=== PATIENT | female | born 1985 | race Hispanic/Latino ===

== ENCOUNTER 2017-01-16 11:19 | Emergency (ER) | payer SELFPAY ==
[2017-01-16 12:09] LABS: Basophils % (Auto) 0.9 % (0.0-1.8); Eosinophils % (Auto) 1.3 % (0.0-4.3); Hematocrit 40.4 % (30.3-42.9); Mean Corpuscular HGB Conc 32 % (30-34); Mean Corpuscular Hemoglobin 27 pg (28-32); Mean Corpuscular Volume 84 fl (79-97); Platelet Count 359 K/mm3 (140-440); Red Blood Count 4.79 M/mm3 (3.65-5.03); Red Cell Distribution Width 14.1 % (13.2-15.2); White Blood Count 9.1 K/mm3 (4.5-11.0)
[2017-01-16 12:15] LABS: Anion Gap 19 mmol/L; Blood Urea Nitrogen 4 mg/dL (7-17); Carbon Dioxide 23 mmol/L (22-30); Chloride 103.6 mmol/L (98-107); Glucose 84 mg/dL (65-100); Potassium 3.3 mmol/L (3.6-5.0); Sodium 142 mmol/L (137-145)
[2017-01-16] MEDS ORDERED: NACL 0.9% 1000 ML 1,000 ML IV ONE (17:01)
[2017-01-16] MEDS ORDERED: REGLAN IV ONE (17:02)
--- NOTE | 2017-01-16 17:11 | Emergency Department Report ---
HPI - General Chief Complaint: Nausea/Vomiting/Diarrhea Time Seen by Provider: 01/16/17 17:01 - HPI HPI: This is a 31-year-old female presents to the emergency department from home with complaint of 2 days of diarrhea and nausea with vomiting that has been going on since about 5 AM this morning. The nausea and vomiting is what brought her in to be seen today. She came in by EMS and received some IV fluid and allegedly 1 dose of Zofran despite the allergy to this. She still complains of the same symptoms and has been in the emergency department for about 6 hours at this point prior to myself taking over her care. She has a past medical history of asthma, hypertension and a history of IV drug use. She admits to tobacco use and occasional marijuana use. She currently appears to be homeless sleeping in a tent outside as she says that she and her significant other are trying to "save up enough money to get a house for us and her children." She does not have a primary care physician. No recent travel or sick contacts at home. ED Past Medical Hx - Past Medical History Previous Medical History?: Yes Hx Hypertension: Yes (no meds) Hx Psychiatric Treatment: Yes (i.v. drug use) Hx Asthma: Yes Additional medical history: Vaginal delivery x 3 - Surgical History Past Surgical History?: No - Social History Smoking Status: Current Every Day Smoker Substance Use Type: Marijuana ED Review of Systems ROS: Stated complaint: N/V Other details as noted in HPI Comment: All other systems reviewed and negative Constitutional: denies: chills, fever Eyes: denies: eye pain, eye discharge, vision change ENT: denies: ear pain, throat pain Respiratory: denies: cough, shortness of breath, wheezing Cardiovascular: denies: chest pain, palpitations Gastrointestinal: nausea, vomiting, diarrhea Genitourinary: denies: urgency, dysuria, discharge Musculoskeletal: denies: back pain, joint swelling, arthralgia Skin: denies: rash, lesions Neurological: denies: headache, weakness, paresthesias Physical Exam - Physical Exam Vital Signs: Vital Signs 01/16/17 11:27 Temperature 98.2 F Pulse Rate 69 Respiratory 18 Rate Blood Pressure 160/106 O2 Sat by Pulse 100 Oximetry Physical Exam: GENERAL: The patient is well-developed well-nourished. HEENT: Normocephalic. Atraumatic. Extraocular motions are intact. Pupils equal reactive to light bilaterally. Moist membranes. NECK: Supple. Trachea is midline. CHEST/LUNGS: Clear to auscultation. There is no respiratory distress noted. HEART/CARDIOVASCULAR: Regular. There is no tachycardia. There is no gallop rub or murmur. ABDOMEN: Abdomen is soft, nontender. Patient has normal bowel sounds. There is no abdominal distention. SKIN: Skin is warm and dry. NEURO: The patient is awake, alert, and oriented. The patient is cooperative. The patient has no focal neurologic deficits. The patient has normal speech. Normal gait. MUSCULOSKELETAL: There is no tenderness or deformity. There is no limitation range of motion. There is no evidence of acute injury. ED Course Vital Signs 01/16/17 11:27 Temperature 98.2 F Pulse Rate 69 Respiratory 18 Rate Blood Pressure 160/106 O2 Sat by Pulse 100 Oximetry ED Medical Decision Making - Lab Data Result diagrams: 01/16/17 11:36 01/16/17 11:36 - Medical Decision Making 31-year-old female presents to the emergency department with complaint of nausea and vomiting since this morning and 2 days of diarrhea. Since the patient has been in the emergency department there is been no further vomiting. She received a dose of Reglan and upon reevaluation she has any nausea. There is been no further diarrhea. Her CBC and BMP are mostly unremarkable except for some mild hypokalemia which was replaced with potassium chloride. The patient urinated just prior to us asking for a urine sample and does not yet need to go again. She got a liter of IV fluid but afterwards the IV started hurting her hand, and despite the fact that it does not appear to have infiltrated, it was taken out. She was able to display oral rehydration. She was seen ambulatory in the the emergency department and appeared stable. Patient appears unconcerned about possible or urinary tract infection. She understands that if she is and we are unable to get a urine sample and diagnosed at that she could be exposing herself to medications or conditions that are unsafe for a fetus. She says she is feeling much better and back to her baseline and asking for discharge home. She'll be given referrals for primary care physician's clinics. She will return to the ER for any worsening of her symptoms or any acute distress - Differential Diagnosis gastroenteritis, food poisoning, colitis, diverticulitis, Critical Care Time: No Critical care attestation.: If time is entered above; I have spent that time in minutes in the direct care of this critically ill patient, excluding procedure time. ED Disposition Clinical Impression: Dehydration Nausea and vomiting Qualifiers: Vomiting type: unspecified Vomiting Intractability: non-intractable Qualified Code(s): R11.2 - Nausea with vomiting, unspecified Disposition: - TO HOME OR SELFCARE Is pt being admited?: No Condition: Stable Instructions: Dehydration (ED), Acute Nausea and Vomiting (ED) Additional Instructions: Please follow-up with a primary care physician in the next few days if possible. Return to the emergency department with any worsening of your symptoms or any acute distress. Referrals: PRIMARY CARE,MD [Primary Care Provider] - 3-5 Days [facility] [place] [Outside] - 3-5 Days [facility] [Outside] - 3-5 Days [facility] [Outside] - 3-5 Days [facility] [Outside] - 3-5 Days Time of Disposition: 18:26
[2017-01-16 17:13] VITALS: BP 144/92
[2017-01-16] MEDS ORDERED: K-DUR PO ONE ×2 (17:27→18:00)
[2017-01-16] MEDS ORDERED: TYLENOL PO ONE (17:58)
== END 2017-01-16 19:34 | disposition home or self-care (01) ==
LOC: ED 11:19
DX: E86.0 Dehydration (principal); I10 Essential (primary) hypertension; J45.909 Unspecified asthma, uncomplicated; F17.200 Nicotine dependence, unspecified, uncomplicated; F12.10 Cannabis abuse, uncomplicated
CPT/HCPCS: 36415; 80048; 85025; 96361; 96374; 99284; J2765; J7030

== ENCOUNTER 2017-05-26 08:57 | Emergency (ER) | payer SELFPAY ==
[2017-05-26 09:23] VITALS: BP 125/81
--- NOTE | 2017-05-26 10:44 | XRay Report ---
ROUTINE CHEST, TWO VIEWS: HISTORY: Productive cough. The trachea, heart, mediastinal contour, lung ortez and bony thorax are unremarkable. IMPRESSION: Unremarkable chest x-ray.
[2017-05-26] MEDS ORDERED: XYLOCAINE 1% MPF 5 mL INFILTRATI ONE (11:15)
[2017-05-26] MEDS ORDERED: ZITHROMAX PO ONE (11:15)
[2017-05-26] MEDS ORDERED: ROCEPHIN IM ONE (11:15)
[2017-05-26] MEDS ORDERED: TESSALON PERLES PO ONE (11:15)
--- NOTE | 2017-05-26 11:25 | Emergency Department Report ---
- General Chief Complaint: Upper Respiratory Infection Stated Complaint: COUGHING Time Seen by Provider: 05/26/17 11:07 Source: patient, EMS Mode of arrival: Ambulatory Limitations: No Limitations - History of Present Illness Initial Comments: This is a 31-year-old female nontoxic, well nourished in appearance, no acute signs of distress presents to the ED with c/o of polyuria, productive cough, rhinorrhea, nasal congestion, vaginal discharge with odor times one week. Patient stated she is currently homeless. Patient denies any calf pain, calf tenderness, fever, chills, nausea, vomiting, chest pain, shortness of breathe, numbness, tingling, headache, stiff neck, blurry vision. Patient denies hemoptysis. Patient describes vaginal discharge as yellow in color with foul odor. Patient stated she is concerned about STD and wants to be treated. Patient states allergies to Flagyl, morphine, and zofran. PMH includes asthma and HTN. MD Complaint: cough, rhinorrhea, nasal congestion -: week(s) (1) Severity: mild Consistency: constant Improves With: nothing Worsens With: nothing Associated Symptoms: rhinorrhea, nasal congestion, cough. denies: fever, chills , myalgias, diaphoresis, headache, sore throat, stiff neck, chest pain, shortness of breath, abdominal pain, nausea, vomiting, diarrhea, dysuria, rash, confusion, right sweats, weight loss, epistaxis, hoarseness, ear pain Treatments Prior to Arrival: none - Related Data Previous Rx's Medication Instructions Recorded Last Taken Type Azithromycin [Zithromax Z-ALLISON] 250 mg PO DAILY #6 tablet 05/26/17 Unknown Rx Benzonatate [Tessalon Perle] 100 mg PO Q8H #20 capsule 05/26/17 Unknown Rx Allergies Allergy/AdvReac Type Severity Reaction Status Date / Time metronidazole [From Flagyl] Allergy Rash Verified 01/16/17 11:27 morphine Allergy Rash Verified 01/16/17 11:27 ondansetron HCl Allergy Rash Verified 01/16/17 11:27 [From Zofran (as hydrochloride)] ED Review of Systems ROS: Stated complaint: COUGHING Other details as noted in HPI Constitutional: denies: chills, fever Eyes: denies: eye pain, eye discharge, vision change ENT: denies: ear pain, throat pain Respiratory: cough. denies: shortness of breath, wheezing Cardiovascular: denies: chest pain, palpitations Endocrine: no symptoms reported Gastrointestinal: denies: abdominal pain, nausea, diarrhea Genitourinary: frequency, discharge. denies: urgency, dysuria Musculoskeletal: denies: back pain, joint swelling, arthralgia Skin: denies: rash, lesions Neurological: denies: headache, weakness, paresthesias Psychiatric: denies: anxiety, depression Hematological/Lymphatic: denies: easy bleeding, easy bruising ED Past Medical Hx - Past Medical History Previous Medical History?: Yes Hx Hypertension: Yes (no meds) Hx Psychiatric Treatment: Yes (i.v. drug use) Hx Asthma: Yes Additional medical history: Vaginal delivery x 3 - Surgical History Past Surgical History?: No - Social History Smoking Status: Current Every Day Smoker - Medications Home Medications: Home Medications Medication Instructions Recorded Confirmed Last Taken Type Azithromycin [Zithromax Z-ALLISON] 250 mg PO DAILY #6 tablet 05/26/17 Unknown Rx Benzonatate [Tessalon Perle] 100 mg PO Q8H #20 capsule 05/26/17 Unknown Rx ED Physical Exam - General Limitations: No Limitations General appearance: alert, in no apparent distress - Head Head exam: Present: atraumatic, normocephalic, normal inspection - Eye Eye exam: Present: normal appearance, PERRL, EOMI. Absent: scleral icterus, conjunctival injection, nystagmus, periorbital swelling, periorbital tenderness Pupils: Present: normal accommodation - ENT ENT exam: Present: normal exam, mucous membranes moist, TM's normal bilaterally , normal external ear exam, other - Expanded ENT Exam Expanded Ear exam: Present: normal external inspection Mouth exam: Present: normal external inspection, tongue normal. Absent: drooling, trismus, muffled voice, tongue elevation, laceration Throat exam: Positive: tonsillar erythema. Negative: tonsillomegaly, tonsillar exudate, R peritonsillar mass, L peritonsillar mass - Neck Neck exam: Present: normal inspection, full ROM. Absent: tenderness, meningismus, lymphadenopathy, thyromegaly - Respiratory Respiratory exam: Present: normal lung sounds bilaterally. Absent: respiratory distress, wheezes, rales, rhonchi, stridor, chest wall tenderness, accessory muscle use, decreased breath sounds, prolonged expiratory - Cardiovascular Cardiovascular Exam: Present: regular rate, normal rhythm, normal heart sounds. Absent: irregular rhythm, systolic murmur, diastolic murmur, rubs, gallop - GI/Abdominal GI/Abdominal exam: Present: soft, normal bowel sounds. Absent: distended, tenderness, guarding, rebound, rigid, diminished bowel sounds - Rectal Rectal exam: Present: deferred - Extremities Exam Extremities exam: Present: normal inspection, full ROM, normal capillary refill. Absent: tenderness, pedal edema, joint swelling, calf tenderness - Back Exam Back exam: Present: normal inspection, full ROM. Absent: tenderness, CVA tenderness (R), CVA tenderness (L), muscle spasm, paraspinal tenderness, vertebral tenderness, rash noted - Neurological Exam Neurological exam: Present: alert, oriented X3, CN II-XII intact, normal gait, reflexes normal - Psychiatric Psychiatric exam: Present: normal affect, normal mood - Skin Skin exam: Present: warm, dry, intact, normal color. Absent: rash ED Course Vital Signs 05/26/17 09:18 Temperature 97.7 F Pulse Rate 95 H Respiratory 20 Rate Blood Pressure 125/81 O2 Sat by Pulse 99 Oximetry - Reevaluation(s) Reevaluation #1: 05/26/17 11:27 Patient is speaking in full sentences with no signs of distress noted. ED Medical Decision Making - Medical Decision Making This is a 31-year-old female that presents with possible STD exposure, and upper respiratory infection. Patient is stable and was examined by me. UA obtained. She received Tessalon Perle in the ED which patient stated symptoms of cough is improving. Patient be treated with Z-Allison at discharge. Patient received Rocephin and azithromycin in the EP. Chest x-ray obtained and dictated by radiologist with normal examination. Patient refused a pelvic exam and states she is wants to be treated empirically and I instructed the patient that I must obtain a wet prep that rules out for bacterial vaginosis, Trichomonas, or yeast infection the patient stated she just wanted to be treated for a possible STD. 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 Patient stated she will return in about an hour for her other results. I will treated patient with z-allison before AMA. Patient was instructed Follow-up with a primary care doctor in 3-5 days or if symptoms worsen and continue return to emergency room as soon as possible. At time time of AMA, the patient does not seem toxic or ill in appearance. No acute signs of distress noted. Patient agrees to treatment plan of care. No further questions noted by the patient. Critical care attestation.: If time is entered above; I have spent that time in minutes in the direct care of this critically ill patient, excluding procedure time. ED Disposition Clinical Impression: Possible exposure to STD Upper respiratory infection Qualifiers: URI type: unspecified URI Qualified Code(s): J06.9 - Acute upper respiratory infection, unspecified Disposition: LEFT AGAINST MED ADVICE Is pt being admited?: No Does the pt Need Aspirin: No Condition: Stable Instructions: Benzonatate (By mouth), Azithromycin (By mouth), Safe Sex (ED), Upper Respiratory Infection (ED) Additional Instructions: Follow-up with a primary care doctor in 3-5 days or if symptoms worsen and continue return to emergency room as soon as possible. Prescriptions: Azithromycin [Zithromax Z-ALLISON] 250 mg PO DAILY #6 tablet Benzonatate [Tessalon Perle] 100 mg PO Q8H #20 capsule Referrals: PRIMARY CAREMD [Primary Care Provider] - 3-5 Days ERIC WALTERS MD [Staff Physician] - 3-5 Days [facility] [Outside] - 3-5 Days [facility] [Outside] - 3-5 Days Forms: AMA Form
[2017-05-26 11:48] LABS: Bacteria,Urine 1+ /HPF (Negative); Bilirubin,Urine NEG (Negative); Blood,Urine NEG (Negative); Ketones,Urine NEG (Negative); Leukocyte Esterase,Urine MOD (Negative); Mucus,Urine FEW /HPF; Nitrite,Urine NEG (Negative); Protein,Urine <15 mg/dL mg/dL (Negative)
== END 2017-05-26 11:39 | disposition left against medical advice (07) ==
LOC: ED 08:57
DX: J06.9 Acute upper respiratory infection, unspecified (principal); I10 Essential (primary) hypertension; J45.909 Unspecified asthma, uncomplicated; F17.200 Nicotine dependence, unspecified, uncomplicated; Z88.1 Allergy status to other antibiotic agents; Z88.6 Allergy status to analgesic agent
CPT/HCPCS: 71020; 81001; 96372; 99284; J0696

== ENCOUNTER 2017-06-16 12:46 | Emergency (ER) | payer OTHER ==
[2017-06-16 14:00] VITALS: BP 118/73
--- NOTE | 2017-06-16 19:15 | Emergency Department Report ---
ED ENT HPI - General Chief complaint: Earache Stated complaint: EAR PAIN/JAW PAIN Time Seen by Provider: 06/16/17 18:16 Source: patient Mode of arrival: Ambulatory Limitations: No Limitations - History of Present Illness Initial comments: This is a 31-year-old female nontoxic, well nourished in appearance, no acute signs of distress presents to the ED with c/o of left earache x4 days. Patient stated the earache makes her left jaw region throb. Patient denies any mastoid tenderness, ear canal discharge, hearing loss, hearing changes, nausea, vomiting , chest pain, shortness of breathe, fever, chills, stiff neck or headache. Allergies includes Flagyl, morphine, and Zofran. PMH includes asthma, and HTN. MD complaint: ear pain -: days(s) (4) Location: L ear Severity: mild Severity scale (0 -10): 8 Quality: aching Consistency: constant Improves with: none Worsens with: none Associated Symptoms: denies: fever, cough, gum swelling, toothache, pain with swallowing, sore throat, tinnitus, hearing loss, discharge from ear, rhinorrhea - Related Data Previous Rx's Medication Instructions Recorded Last Taken Type Azithromycin [Zithromax Z-ALLISON] 250 mg PO DAILY #6 tablet 05/26/17 Unknown Rx Benzonatate [Tessalon Perle] 100 mg PO Q8H #20 capsule 05/26/17 Unknown Rx Nitrofurantoin [place]/M-Cryst 100 mg PO Q12HR #14 capsule 05/28/17 Unknown Rx [Macrobid CAP] Amoxicillin [Amoxicillin TAB] 875 mg PO BID #20 tablet 06/16/17 Unknown Rx Ibuprofen [Motrin] 600 mg PO Q8H PRN #30 tablet 06/16/17 Unknown Rx Allergies Allergy/AdvReac Type Severity Reaction Status Date / Time metronidazole [From Flagyl] Allergy Rash Verified 01/16/17 11:27 morphine Allergy Rash Verified 01/16/17 11:27 ondansetron HCl Allergy Rash Verified 01/16/17 11:27 [From Zofran (as hydrochloride)] ED Dental HPI - General Chief complaint: Earache Stated complaint: EAR PAIN/JAW PAIN Time Seen by Provider: 06/16/17 18:16 Source: patient Mode of arrival: Ambulatory Limitations: No Limitations - Related Data Previous Rx's Medication Instructions Recorded Last Taken Type Azithromycin [Zithromax Z-ALLISON] 250 mg PO DAILY #6 tablet 05/26/17 Unknown Rx Benzonatate [Tessalon Perle] 100 mg PO Q8H #20 capsule 05/26/17 Unknown Rx Nitrofurantoin [place]/M-Cryst 100 mg PO Q12HR #14 capsule 05/28/17 Unknown Rx [Macrobid CAP] Amoxicillin [Amoxicillin TAB] 875 mg PO BID #20 tablet 06/16/17 Unknown Rx Ibuprofen [Motrin] 600 mg PO Q8H PRN #30 tablet 06/16/17 Unknown Rx Allergies Allergy/AdvReac Type Severity Reaction Status Date / Time metronidazole [From Flagyl] Allergy Rash Verified 01/16/17 11:27 morphine Allergy Rash Verified 01/16/17 11:27 ondansetron HCl Allergy Rash Verified 01/16/17 11:27 [From Zofran (as hydrochloride)] ED Review of Systems ROS: Stated complaint: EAR PAIN/JAW PAIN Other details as noted in HPI Constitutional: denies: chills, fever Eyes: denies: eye pain, eye discharge, vision change ENT: ear pain. denies: throat pain Respiratory: denies: cough, shortness of breath, wheezing Cardiovascular: denies: chest pain, palpitations Endocrine: no symptoms reported Gastrointestinal: denies: abdominal pain, nausea, diarrhea Genitourinary: denies: urgency, dysuria, discharge Musculoskeletal: denies: back pain, joint swelling, arthralgia Skin: denies: rash, lesions Neurological: denies: headache, weakness, paresthesias Psychiatric: denies: anxiety, depression Hematological/Lymphatic: denies: easy bleeding, easy bruising ED Past Medical Hx - Past Medical History Previous Medical History?: Yes Hx Hypertension: Yes (no meds) Hx Psychiatric Treatment: Yes (i.v. drug use) Hx Asthma: Yes Additional medical history: Vaginal delivery x 3 - Surgical History Past Surgical History?: No - Social History Smoking Status: Current Every Day Smoker Substance Use Type: None - Medications Home Medications: Home Medications Medication Instructions Recorded Confirmed Last Taken Type Azithromycin [Zithromax Z-ALLISON] 250 mg PO DAILY #6 tablet 05/26/17 Unknown Rx Benzonatate [Tessalon Perle] 100 mg PO Q8H #20 capsule 05/26/17 Unknown Rx Nitrofurantoin [place]/M-Cryst 100 mg PO Q12HR #14 capsule 05/28/17 Unknown Rx [Macrobid CAP] Amoxicillin [Amoxicillin TAB] 875 mg PO BID #20 tablet 06/16/17 Unknown Rx Ibuprofen [Motrin] 600 mg PO Q8H PRN #30 tablet 06/16/17 Unknown Rx ED Physical Exam - General Limitations: No Limitations General appearance: alert, in no apparent distress - Head Head exam: Present: atraumatic, normocephalic, normal inspection - Eye Eye exam: Present: normal appearance, PERRL, EOMI. Absent: scleral icterus, conjunctival injection, nystagmus, periorbital swelling, periorbital tenderness Pupils: Present: normal accommodation - ENT ENT exam: Present: normal exam, normal orophraynx, mucous membranes moist, normal external ear exam - Expanded ENT Exam Expanded Ear exam: Present: normal external inspection TM/Canal exam: Erythema: Left TM, Bulging: Left TM Mouth exam: Present: normal external inspection, tongue normal. Absent: drooling, trismus, muffled voice, tongue elevation, laceration Teeth exam: Present: normal inspection Throat exam: Positive: normal inspection, other (No acbsess or facial swelling. ). Negative: tonsillar erythema, tonsillomegaly, tonsillar exudate, R peritonsillar mass, L peritonsillar mass - Neck Neck exam: Present: normal inspection, full ROM. Absent: tenderness, meningismus, lymphadenopathy, thyromegaly - Respiratory Respiratory exam: Present: normal lung sounds bilaterally. Absent: respiratory distress, wheezes, rales, rhonchi, stridor, chest wall tenderness, accessory muscle use, decreased breath sounds, prolonged expiratory - Cardiovascular Cardiovascular Exam: Present: regular rate, normal rhythm. Absent: systolic murmur, diastolic murmur, rubs, gallop - GI/Abdominal GI/Abdominal exam: Present: soft, normal bowel sounds - Extremities Exam Extremities exam: Present: normal inspection, full ROM, normal capillary refill. Absent: tenderness, pedal edema, joint swelling, calf tenderness - Back Exam Back exam: Present: normal inspection, full ROM. Absent: tenderness, CVA tenderness (R), CVA tenderness (L), muscle spasm, paraspinal tenderness, vertebral tenderness, rash noted - Neurological Exam Neurological exam: Present: alert, oriented X3, CN II-XII intact, normal gait, reflexes normal - Psychiatric Psychiatric exam: Present: normal affect, normal mood - Skin Skin exam: Present: warm, dry, intact, normal color. Absent: rash ED Course Vital Signs 06/16/17 13:58 Temperature 98.7 F Pulse Rate 96 H Respiratory 16 Rate Blood Pressure 118/73 O2 Sat by Pulse 98 Oximetry - Reevaluation(s) Reevaluation #1: 06/16/17 19:32 Patient is speaking in full sentences with no signs of distress noted. ED Medical Decision Making - Medical Decision Making This is a 31-year-old female that presents with left otitis media. Patient is stable and was examined by me. Patient received Motrin in the ED. Patient is d/ c woth amox. Patient was instructed Follow-up with a primary care doctor in 3-5 days or if symptoms worsen and continue return to emergency room as soon as possible. At time time of discharge, the patient does not seem toxic or ill in appearance. No acute signs of distress noted. Patient agrees to discharge treatment plan of care. No further questions noted by the patient. Critical care attestation.: If time is entered above; I have spent that time in minutes in the direct care of this critically ill patient, excluding procedure time. ED Disposition Clinical Impression: Otitis media Qualifiers: Otitis media type: unspecified Laterality: left Qualified Code(s): H66.92 - Otitis media, unspecified, left ear Disposition: DC-01 TO HOME OR SELFCARE Is pt being admited?: No Does the pt Need Aspirin: No Condition: Stable Instructions: Otitis Media (ED), Ibuprofen (By mouth), Amoxicillin (By mouth) Additional Instructions: Follow-up with a primary care doctor in 3-5 days or if symptoms worsen and continue return to emergency room as soon as possible. Prescriptions: Amoxicillin [Amoxicillin TAB] 875 mg PO BID #20 tablet Ibuprofen [Motrin] 600 mg PO Q8H PRN #30 tablet PRN Reason: Pain Referrals: ERIC WALTERS MD [Staff Physician] - 3-5 Days CARROLL THOMAS MD [Staff Physician] - 3-5 Days [facility] [Outside] - 3-5 Days [facility] [place] [Outside] - 3-5 Days Forms: Work/School Release Form(ED)
[2017-06-16] MEDS ORDERED: MOTRIN PO ONE (19:34)
[2017-06-16] MEDS ORDERED: ULTRAM ONE (20:24)
[2017-06-16] MEDS ORDERED: ULTRAM PO ONE (20:25)
== END 2017-06-16 20:15 | disposition home or self-care (01) ==
LOC: ED 12:46
DX: H66.92 Otitis media, unspecified, left ear (principal); I10 Essential (primary) hypertension; J45.909 Unspecified asthma, uncomplicated; F17.200 Nicotine dependence, unspecified, uncomplicated; Z88.8 Allergy status to other drugs, medicaments and biological substances; Z88.5 Allergy status to narcotic agent
CPT/HCPCS: 99282

== ENCOUNTER 2017-08-11 13:36 | Emergency (ER) | payer SELFPAY ==
--- NOTE | 2017-08-11 21:52 | Emergency Department Report ---
Upper Extremity - HPI Chief Complaint: Extremity Injury, Upper Stated Complaint: DIZZINESS Time Seen by Provider: 08/11/17 21:33 Upper Extremity: Left Hand (numbness to both hands. Denies pain), Right Hand Occurred When: >5 Days (ongoing for months) Mechanism: Unsure (no pain at present) Symptoms: Yes Numbness (both hands), No Pain with Movement (0/10 pain), No Deformity, No Limited Range of Movement, No Weakness, No Swelling, No Bruising/ Ecchymosis, No Laceration or Abrasion Other History: Patient here reported that she's been having ongoing numbness to both hands without any pain. She said it was aggravated by her doing some work building halfway this weekend. Patient is a smoker. She also says she is homeless and she sleeps outside and is enough to call causes it. Patient is recovering IV drug user and was asked and if that could've caused it. She denies any pain in hands. Denies any change in temperature. Immunizations up- to-date per patient. She does not have a primary care doctor ED Review of Systems ROS: Stated complaint: DIZZINESS Other details as noted in HPI Comment: All other systems reviewed and negative Constitutional: no symptoms reported Respiratory: no symptoms reported Cardiovascular: denies: chest pain, palpitations, dyspnea on exertion, edema, syncope, other Gastrointestinal: denies: abdominal pain, nausea, vomiting Genitourinary: denies: urgency, dysuria, frequency, hematuria, discharge Musculoskeletal: other (numbness to both hands that is chronic). denies: back pain, arthralgia, myalgia Skin: denies: rash Neurological: numbness (both hands). denies: headache, weakness, paresthesias, confusion ED Past Medical Hx - Past Medical History Previous Medical History?: Yes Hx Hypertension: Yes (no meds) Hx Psychiatric Treatment: Yes (i.v. drug use) Hx Asthma: Yes Additional medical history: Vaginal delivery x 3 - Surgical History Past Surgical History?: No - Family History Family history: no significant - Social History Smoking Status: Current Every Day Smoker Substance Use Type: None - Medications Home Medications: Home Medications Medication Instructions Recorded Confirmed Last Taken Type Azithromycin [Zithromax Z-ALLISON] 250 mg PO DAILY #6 tablet 05/26/17 Unknown Rx Benzonatate [Tessalon Perle] 100 mg PO Q8H #20 capsule 05/26/17 Unknown Rx Nitrofurantoin [place]/M-Cryst 100 mg PO Q12HR #14 capsule 05/28/17 Unknown Rx [Macrobid CAP] Amoxicillin [Amoxicillin TAB] 875 mg PO BID #20 tablet 06/16/17 Unknown Rx Ibuprofen [Motrin] 600 mg PO Q8H PRN #30 tablet 06/16/17 Unknown Rx Upper Extremity Exam - Exam General: Vital signs noted. No distress. Alert and acting appropriately. This is a 32-year-old female well-nourished well-developed in no acute distress. Head and Torso: No HEENT Abnormality (normal examination), No Neck Tenderness ( normal examination), No Chest/Lungs Abnormality (clear to auscultate bilaterally , no rhonchi wheezes or rales.), No Abdominal Tenderness (nontender to palpate in all quadrants. Normal bowel sounds), No Back Tenderness (no vertebral or paraspinal tenderness) Shoulder Exam: Yes Normal Range of Motion in Shoulder (normal range of motion), No Shoulder Tenderness, No Clavicle Tenderness, No Shoulder Deformity, No AC Joint Tenderness Arm Exam: No Arm/Humerus Tenderness, No Arm Deformity Elbow: Yes Normal Range of Motion in Elbow (full range of motion really), No Elbow Tenderness, No Elbow Deformity Forearm: No Forearm Tenderness, No Forearm Deformity, No Pain with Pronation, No Pain with Supination Wrist: Yes Normal ROM in Wrist, No Wrist Tenderness, No Wrist Deformity, No Snuffbox Tenderness, No Pain with Axial Thumb Compression Hand: Yes Normal ROM in Digit(s), No Hand Tenderness (no swelling noted), No Hand Deformity, No Digit Tenderness (no restriction in movement to hands and fingers), No Digit(s) Deformity, No Tendon Dysfunction CMS Exam: Yes Normal Distal Pulses, Yes Normal Capillary Refill, Yes Normal Distal Sensation, No Broken Skin ED Course Vital Signs 08/11/17 14:29 Temperature 98.3 F Pulse Rate 100 H Respiratory 16 Rate Blood Pressure 135/71 O2 Sat by Pulse 97 Oximetry Vital Signs 08/11/17 08/11/17 14:29 21:59 Temperature 98.3 F 98.3 F Pulse Rate 100 H 88 Respiratory 16 16 Rate Blood Pressure 135/71 Blood Pressure 126/71 [Right] O2 Sat by Pulse 97 96 Oximetry - Reevaluation(s) Reevaluation #1: 08/11/17 22:38 Normal exam ED Medical Decision Making - Medical Decision Making ED course:Patient here reports bilateral hand numbness that has been ongoing for a few months now. Patient did not have any direct injury but reports that she is recovering IV drug user and also homeless and stays outside a lot and she said she was working on some halfway a few days ago and thinks that this caused the numbness. Patient is a smoker. Physical findings were normal exam of both hands with 2+ and full bounding pulses and +5 strength all extremities. Bilateral handgrip strong and equal. No neurovascular compromise with normal capillary refills. No difference in temperature to both hands which are warm. I discussed the patient that this is a chronic nerve problems and she will need to follow-up with primary care which is at [facility] and they can refer her if needed. I also discussed with her that she needs to stop smoking because this can cause her to have numbness in her hands. She voiced understanding and discharged home in stable condition Critical care attestation.: If time is entered above; I have spent that time in minutes in the direct care of this critically ill patient, excluding procedure time. ED Disposition Clinical Impression: Numbness in both hands, Nicotine abuse Disposition: DC-01 TO HOME OR SELFCARE Is pt being admited?: No Does the pt Need Aspirin: No Condition: Stable Instructions: How to Stop Smoking (ED), Paresthesia (ED) Additional Instructions: Please increase her fluid intake He stopped smoking Increased her fluid intake Referrals: [facility] [Outside] - 2-3 Days Forms: Work/School Release Form(ED)
[2017-08-11 22:00] VITALS: BP 126/71
== END 2017-08-11 22:55 | disposition home or self-care (01) ==
LOC: ED 13:36
DX: R20.0 Anesthesia of skin (principal); F17.200 Nicotine dependence, unspecified, uncomplicated; I10 Essential (primary) hypertension
CPT/HCPCS: 99283

== ENCOUNTER 2017-08-14 12:52 | Emergency (ER) | payer SELFPAY ==
[2017-08-14] MEDS ORDERED: TYLENOL PO ONE (14:21)
[2017-08-14] MEDS ORDERED: TYLENOL ONE (14:22)
--- NOTE | 2017-08-14 17:54 | Emergency Department Report ---
Blank Doc - Documentation Documentation: Patient is a 32-year-old female with flulike symptoms. Patient's initial past 2 days she's had cough, congestion she has pain in the right lower lung ortez with coughing as well as body aches decreased appetite. Patient is febrile 102. Slightly tachycardic. Lungs were clear to auscultation. Patient will have a chest x-ray rule out atypical pneumonia.
[2017-08-14] MEDS ORDERED: TORADOL IM ONE (17:55)
--- NOTE | 2017-08-14 19:08 | XRay Report ---
FINAL REPORT PROCEDURE: XR CHEST ROUTINE 2V TECHNIQUE: PA and lateral chest radiographs were obtained. CPT 20483 HISTORY: cough COMPARISON: No prior studies are available for comparison. FINDINGS: Heart: Normal. Mediastinum/Vessels: Normal. Lungs/Pleural space: No infiltrate, effusion, or pneumothorax is seen. Bony thorax: No acute osseous abnormality. Other: IMPRESSION: No pulmonary infiltrates are identified.
[2017-08-14] MEDS ORDERED: TESSALON PERLES PO ONE (20:06)
[2017-08-14 20:28] VITALS: BP 118/67
--- NOTE | 2017-08-14 20:53 | Emergency Department Report ---
- General Chief Complaint: Fever Stated Complaint: FEVER Time Seen by Provider: 08/14/17 17:51 Source: patient Mode of arrival: Ambulatory Limitations: No Limitations - History of Present Illness Initial Comments: This is a 32-year-old female nontoxic, well nourished in appearance, no acute signs of distress presents to the ED with c/o of productive cough, fever, chills , body aches, rhinorrhea, nasal congestion x2 days. Patient describes productive cough as yellow mucus production. Patient denies any recent travels , long car, recent hospital stays. Patient denies any calf pain or calf tenderness. Patient denies any chest pain, short of breath, fever, chills, nausea, vomiting, hemoptysis, numbness, tingling, headache or stiff neck. Patient states allergies to Flagyl, morphine, and Zofran. PMH includes HTN and asthma. MD Complaint: fever, cough, rhinorrhea, nasal congestion -: days(s) (2) Severity: mild Severity scale (0 -10): 8 Quality: aching Consistency: constant Improves With: nothing Worsens With: nothing Associated Symptoms: fever, chills, rhinorrhea, nasal congestion, cough. denies : myalgias, diaphoresis, headache, sore throat, stiff neck, chest pain, shortness of breath, abdominal pain, nausea, vomiting, diarrhea, dysuria, rash, confusion, right sweats, weight loss, epistaxis, hoarseness, ear pain Treatments Prior to Arrival: none - Related Data Previous Rx's Medication Instructions Recorded Last Taken Type Azithromycin [Zithromax Z-ALLISON] 250 mg PO DAILY #6 tablet 05/26/17 Unknown Rx Benzonatate [Tessalon Perle] 100 mg PO Q8H #20 capsule 05/26/17 Unknown Rx Nitrofurantoin [place]/M-Cryst 100 mg PO Q12HR #14 capsule 05/28/17 Unknown Rx [Macrobid CAP] Amoxicillin [Amoxicillin TAB] 875 mg PO BID #20 tablet 06/16/17 Unknown Rx Ibuprofen [Motrin] 600 mg PO Q8H PRN #30 tablet 06/16/17 Unknown Rx Azithromycin [Zithromax Z-ALLISON] 250 mg PO DAILY #6 tablet 08/14/17 Unknown Rx Benzonatate [Tessalon Perle] 100 mg PO Q6H PRN #20 capsule 08/14/17 Unknown Rx Ibuprofen [Motrin] 600 mg PO Q8H PRN #30 tablet 08/14/17 Unknown Rx Oseltamivir [Tamiflu] 75 mg PO BID #14 cap 08/14/17 Unknown Rx Allergies Allergy/AdvReac Type Severity Reaction Status Date / Time metronidazole [From Flagyl] Allergy Rash Verified 01/16/17 11:27 morphine Allergy Rash Verified 01/16/17 11:27 ondansetron HCl Allergy Rash Verified 01/16/17 11:27 [From Zofran (as hydrochloride)] ED Review of Systems ROS: Stated complaint: FEVER Other details as noted in HPI Constitutional: chills, fever Eyes: denies: eye pain, eye discharge, vision change ENT: denies: ear pain, throat pain Respiratory: cough. denies: shortness of breath, wheezing Cardiovascular: denies: chest pain, palpitations Endocrine: no symptoms reported Gastrointestinal: denies: abdominal pain, nausea, diarrhea Genitourinary: denies: urgency, dysuria, discharge Musculoskeletal: denies: back pain, joint swelling, arthralgia Skin: denies: rash, lesions Neurological: denies: headache, weakness, paresthesias Psychiatric: denies: anxiety, depression Hematological/Lymphatic: denies: easy bleeding, easy bruising ED Past Medical Hx - Past Medical History Previous Medical History?: Yes Hx Hypertension: Yes (no meds) Hx Psychiatric Treatment: Yes (i.v. drug use) Hx Asthma: Yes Additional medical history: Vaginal delivery x 3 - Surgical History Past Surgical History?: No - Social History Smoking Status: Current Every Day Smoker Substance Use Type: Non Opiate Pain - Medications Home Medications: Home Medications Medication Instructions Recorded Confirmed Last Taken Type Azithromycin [Zithromax Z-ALLISON] 250 mg PO DAILY #6 tablet 05/26/17 Unknown Rx Benzonatate [Tessalon Perle] 100 mg PO Q8H #20 capsule 05/26/17 Unknown Rx Nitrofurantoin [place]/M-Cryst 100 mg PO Q12HR #14 capsule 05/28/17 Unknown Rx [Macrobid CAP] Amoxicillin [Amoxicillin TAB] 875 mg PO BID #20 tablet 06/16/17 Unknown Rx Ibuprofen [Motrin] 600 mg PO Q8H PRN #30 tablet 06/16/17 Unknown Rx Azithromycin [Zithromax Z-ALLISON] 250 mg PO DAILY #6 tablet 08/14/17 Unknown Rx Benzonatate [Tessalon Perle] 100 mg PO Q6H PRN #20 capsule 08/14/17 Unknown Rx Ibuprofen [Motrin] 600 mg PO Q8H PRN #30 tablet 08/14/17 Unknown Rx Oseltamivir [Tamiflu] 75 mg PO BID #14 cap 08/14/17 Unknown Rx ED Physical Exam - General Limitations: No Limitations General appearance: alert, in no apparent distress - Head Head exam: Present: atraumatic, normocephalic - Eye Eye exam: Present: normal appearance, PERRL, EOMI Pupils: Present: normal accommodation - ENT ENT exam: Present: normal exam, normal orophraynx, mucous membranes moist, TM's normal bilaterally, normal external ear exam - Neck Neck exam: Present: normal inspection, full ROM. Absent: tenderness, meningismus, lymphadenopathy, thyromegaly - Respiratory Respiratory exam: Present: normal lung sounds bilaterally. Absent: respiratory distress, wheezes, rales, rhonchi, stridor, chest wall tenderness, accessory muscle use, decreased breath sounds, prolonged expiratory - Cardiovascular Cardiovascular Exam: Present: regular rate, normal rhythm, normal heart sounds. Absent: irregular rhythm, systolic murmur, diastolic murmur, rubs, gallop - GI/Abdominal GI/Abdominal exam: Present: soft, normal bowel sounds. Absent: distended, tenderness, guarding, rebound, rigid, diminished bowel sounds - Rectal Rectal exam: Present: deferred - Extremities Exam Extremities exam: Present: normal inspection, full ROM. Absent: tenderness, pedal edema, joint swelling, calf tenderness - Back Exam Back exam: Present: normal inspection, full ROM. Absent: tenderness, CVA tenderness (R), CVA tenderness (L), muscle spasm, paraspinal tenderness, vertebral tenderness, rash noted - Neurological Exam Neurological exam: Present: alert, oriented X3, CN II-XII intact, normal gait, reflexes normal - Psychiatric Psychiatric exam: Present: normal affect, normal mood - Skin Skin exam: Present: warm, dry, intact, normal color. Absent: rash ED Course Vital Signs 08/14/17 08/14/17 08/14/17 14:17 20:27 20:37 Temperature 102.2 F H 99.8 F H Pulse Rate 109 H 95 H Respiratory 22 18 Rate Blood Pressure 125/86 Blood Pressure 118/67 [Right] O2 Sat by Pulse 98 98 Oximetry - Reevaluation(s) Reevaluation #1: 08/14/17 20:54 Patient is speaking in full sentences with no signs of distress noted. - Consultations Consultation #1: 08/14/17 20:55 Patient has been consulted with Dr. Stephenson about patient history, physical exam , and labs and examined and screened patient and agrees to ED plan of care and discharge plan of care. ED Medical Decision Making - Medical Decision Making This is a 32-year-old female that presents with upper respiratory infection and influenza. Patient is stable and was examined by me and Dr. Stephenson. Chest x- ray has been obtained and dictated by radiologist with normal exam. Patient is notified of x-ray results with no questions noted. Due to patient having symptoms of influenza and upper respiratory infection I will treat patient empirically with Tamiflu and zpak. Patient was instructed to increase hydration , rest and take Motrin for fever episodes. Patient received Toradol, Tylenol, and tesslone perrls in the ED. Vitals stable. Patient is nonfebrile and normal heart rate. Patient was orally hydrated and patient tolerated well known nausea or vomiting. Patient was instructed Follow-up with a primary care doctor in 3- 5 days or if symptoms worsen and continue return to emergency room as soon as possible. At time time of discharge, the patient does not seem toxic or ill in appearance. No acute signs of distress noted. Patient agrees to discharge treatment plan of care. No further questions noted by the patient. Critical care attestation.: If time is entered above; I have spent that time in minutes in the direct care of this critically ill patient, excluding procedure time. ED Disposition Clinical Impression: Influenza Upper respiratory infection Qualifiers: URI type: unspecified URI Qualified Code(s): J06.9 - Acute upper respiratory infection, unspecified Disposition: DC-01 TO HOME OR SELFCARE Is pt being admited?: No Does the pt Need Aspirin: No Condition: Stable Instructions: Fever in Adults (ED), Ibuprofen (By mouth), Electrolyte Supplement (By mouth), Influenza (ED), Azithromycin (By mouth), Oseltamivir (By mouth) Additional Instructions: Follow-up with a primary care doctor in 3-5 days or if symptoms worsen and continue return to emergency room as soon as possible. Increase rest, hydration and take Motrin for fever episodes. Prescriptions: Azithromycin [Zithromax Z-ALLISON] 250 mg PO DAILY #6 tablet Benzonatate [Tessalon Perle] 100 mg PO Q6H PRN #20 capsule PRN Reason: Cough Ibuprofen [Motrin] 600 mg PO Q8H PRN #30 tablet PRN Reason: Fever Oseltamivir [Tamiflu] 75 mg PO BID #14 cap Referrals: PRIMARY CARE, [Primary Care Provider] - 3-5 Days ERIC WALTERS MD [Staff Physician] - 3-5 Days [facility] [Outside] - 3-5 Days [facility] [Outside] - 3-5 Days Forms: Work/School Release Form(ED)
== END 2017-08-14 21:05 | disposition home or self-care (01) ==
LOC: ED 12:52
DX: J11.1 Influenza due to unidentified influenza virus with other respiratory manifestations (principal); I10 Essential (primary) hypertension; J45.909 Unspecified asthma, uncomplicated; F17.200 Nicotine dependence, unspecified, uncomplicated; Z88.5 Allergy status to narcotic agent; Z88.8 Allergy status to other drugs, medicaments and biological substances
CPT/HCPCS: 71046; 99283; J1885

== ENCOUNTER 2017-09-10 11:56 | Emergency (ER) | payer SELFPAY ==
[2017-09-10 12:01] VITALS: BP 124/56
[2017-09-10 12:36] LABS: HCG Qualitative,Urine Negative (Negative)
[2017-09-10] MEDS ORDERED: MOTRIN PO ONE (12:36)
[2017-09-10 12:44] LABS: Bilirubin,Urine NEG (Negative); Blood,Urine NEG (Negative); Color,Urine Yellow (Yellow); Mucus,Urine FEW /HPF; Protein,Urine <15 mg/dL mg/dL (Negative); Urobilinogen,Urine < 2.0 mg/dL (<2.0)
--- NOTE | 2017-09-10 13:05 | Emergency Department Report ---
Blank Doc - Documentation Documentation: Patient is a 32-year-old female who is complaining of urinary frequency and dysuria vaginal discharge. Patient states that she has a strong odor in her vaginal region. Patient states she has some crampy lower abdominal pains 3 out of 10 in severity. Patient states she has had multiple episodes of discharge since she's been with her current partner. Patient denies any nausea vomiting diarrhea fevers or chills.
[2017-09-10] MEDS ORDERED: ZITHROMAX PO ONE (13:37)
[2017-09-10] MEDS ORDERED: XYLOCAINE 1% MPF 5 mL INFILTRATI ONE (13:37)
[2017-09-10] MEDS ORDERED: ROCEPHIN IM ONE (13:37)
--- NOTE | 2017-09-10 13:37 | Emergency Department Report ---
HPI - General Chief Complaint: Urogenital-Female Time Seen by Provider: 09/10/17 12:14 - HPI HPI: Patient is a 32-year-old female who is complaining of urinary frequency and dysuria vaginal discharge. Patient states that she has a strong odor in her vaginal region. Patient states she has some crampy lower abdominal pains 3 out of 10 in severity. Patient states she has had multiple episodes of discharge since she's been with her current partner. Patient denies any nausea vomiting diarrhea fevers or chills. ED Past Medical Hx - Past Medical History Hx Hypertension: Yes (no meds) Hx Psychiatric Treatment: Yes (i.v. drug use,ADHD) Hx Asthma: Yes Additional medical history: Vaginal delivery x 3 - Social History Smoking Status: Never Smoker Substance Use Type: None - Medications Home Medications: Home Medications Medication Instructions Recorded Confirmed Last Taken Type Azithromycin [Zithromax Z-ALLISON] 250 mg PO DAILY #6 tablet 05/26/17 Unknown Rx Benzonatate [Tessalon Perle] 100 mg PO Q8H #20 capsule 05/26/17 Unknown Rx Nitrofurantoin [place]/M-Cryst 100 mg PO Q12HR #14 capsule 05/28/17 Unknown Rx [Macrobid CAP] Amoxicillin [Amoxicillin TAB] 875 mg PO BID #20 tablet 06/16/17 Unknown Rx Ibuprofen [Motrin] 600 mg PO Q8H PRN #30 tablet 06/16/17 Unknown Rx Azithromycin [Zithromax Z-ALLISON] 250 mg PO DAILY #6 tablet 08/14/17 Unknown Rx Benzonatate [Tessalon Perle] 100 mg PO Q6H PRN #20 capsule 08/14/17 Unknown Rx Ibuprofen [Motrin] 600 mg PO Q8H PRN #30 tablet 08/14/17 Unknown Rx Oseltamivir [Tamiflu] 75 mg PO BID #14 cap 08/14/17 Unknown Rx ED Review of Systems ROS: Stated complaint: ABD PN Other details as noted in HPI Constitutional: denies: chills, fever Eyes: denies: eye pain, eye discharge, vision change ENT: denies: ear pain, throat pain Respiratory: denies: cough, shortness of breath, wheezing Cardiovascular: denies: chest pain, palpitations Endocrine: no symptoms reported Gastrointestinal: denies: abdominal pain, nausea, diarrhea Genitourinary: discharge. denies: urgency, dysuria, frequency, hematuria Musculoskeletal: denies: back pain, joint swelling, arthralgia Skin: denies: rash, lesions Neurological: denies: headache, weakness, paresthesias Psychiatric: denies: anxiety, depression Hematological/Lymphatic: denies: easy bleeding, easy bruising Physical Exam - Physical Exam Vital Signs: Vital Signs 09/10/17 11:57 Temperature 99.1 F Pulse Rate 79 Respiratory 18 Rate Blood Pressure 124/56 O2 Sat by Pulse 99 Oximetry Physical Exam: GENERAL: Alert and oriented x3, no apparent distress, Normal Gait, atraumatic. HEAD: Head is normocephalic and a-traumatic. HEART: S1, S2 present, regular rate and rhythm without murmur, no rubs, no gallops. Non tender to palpation ABDOMEN: No organomegaly was noted,Positive bowel sounds, soft, and non- distended. . Nontender to palpation on all Quadrants, NO CVA tenderness. BACK: Full range of motion, no spinal tenderness, nontender to palpation. GENITOURINARY: External genitalia without erythema, exudate or discharge. Vaginal vault is without discharge. Cervix is of normal color without lesion. Cervical os is closed. No bleeding noted. Uterus is noted to be of normal size and nontender. No cervical motion tenderness. No masses are palpated. The adnexa are without masses or tenderness. EXTREMITIES/MUSCULOSKELETAL: No cyanosis, clubbing, rash, lesions or edema. Full ROM bilaterally. UE/LE Pulses 2+ bilaterally. NEUROLOGIC: The patient is cooperative with no focal neurologic deficits. Normal speech. Normal sensation in bilateral upper and lower extremities, ED Course Vital Signs 09/10/17 11:57 Temperature 99.1 F Pulse Rate 79 Respiratory 18 Rate Blood Pressure 124/56 O2 Sat by Pulse 99 Oximetry ED Medical Decision Making - Medical Decision Making 32-year-old female presents with vaginal odor possible STD exposure. ED course: urinalysis and gonorrhea and Chlamydia cultures obtained. Urinalysis positive for leukorrhea, leukocyte esterase. Wet prep his negative findings no abnormal findings. Patient received 250 mg of Rocephin, azithromycin 1 g, as prophylaxis treatment Discussed with patient possible STD due to exposure. Discussed with patient findings and treatment Discussed prophylaxis treatment patient is to abstain from sex 7-10 days as treatment. Discussed patient partner knowledge and treatment. Discussed the follow-up with the health department for further STD testing. Patient's alert and oriented times 3. Vital signs are normal patient is in no acute discharge. Patient will be discharged home with instructions. Critical care attestation.: If time is entered above; I have spent that time in minutes in the direct care of this critically ill patient, excluding procedure time. ED Disposition Clinical Impression: Possible exposure to STD Disposition: DC-01 TO HOME OR SELFCARE Is pt being admited?: No Does the pt Need Aspirin: No Condition: Stable Instructions: Safe Sex (ED), Sexually Transmitted Diseases (ED), Vaginitis (ED) Additional Instructions: Make sure to follow up with the primary care physician as discussed. Take all your medications as you've been prescribed. If you have any worsening symptoms or develop new symptoms please return to ED immediately. Referrals: PRIMARY CARE, [Primary Care Provider] - 3-5 Days ANA M VELASQUEZ MD [Referring] - 3-5 Days [facility] [Outside] - 3-5 Days Forms: Accompanied Note, Work/School Release Form(ED) Time of Disposition: 13:39
== END 2017-09-10 13:51 | disposition home or self-care (01) ==
LOC: ED 11:56
DX: R35.0 Frequency of micturition (principal); R30.0 Dysuria; N89.8 Other specified noninflammatory disorders of vagina; R10.30 Lower abdominal pain, unspecified; I10 Essential (primary) hypertension; J45.909 Unspecified asthma, uncomplicated; F90.9 Attention-deficit hyperactivity disorder, unspecified type; Z88.5 Allergy status to narcotic agent; Z88.8 Allergy status to other drugs, medicaments and biological substances
CPT/HCPCS: 81001; 81025; 87210; 87591; 96372; 99284; J0696